=== PATIENT | male | born 1985 | race Caucasian/White ===

== ENCOUNTER 2018-03-09 16:51 | Emergency (ER) | payer OTHER ==
[~2018-03-09] VITALS: Ht 193 cm; Wt 81.7 kg
[2018-03-09] MEDS ORDERED: GUANFACINE HCL2 MG PO (17:05)
[2018-03-09] MEDS ORDERED: DYNACIN100 MG PO (17:05)
[2018-03-09] MEDS ORDERED: IPRATROPIUM BRO15 ML NASAL (17:06)
[2018-03-09] MEDS ORDERED: PERIDEX15 ML BUCCAL (17:36)
[2018-03-09 17:51] VITALS: BP 106/77
== END 2018-03-09 17:52 | disposition home or self-care (01) ==
LOC: ER 16:51
DX: S02.5XXA Fracture of tooth (traumatic), initial encounter for closed fracture (principal); S01.511A Laceration without foreign body of lip, initial encounter; S01.81XA Laceration without foreign body of other part of head, initial encounter; F10.129 Alcohol abuse with intoxication, unspecified; W18.39XA Other fall on same level, initial encounter; Y92.89 Other specified places as the place of occurrence of the external cause; Y93.89 Activity, other specified; Y99.8 Other external cause status